=== PATIENT | male | born 1980 | race Caucasian/White ===

== ENCOUNTER 2024-03-19 14:29 | Day surgery (SDC) | payer OTHER ==
[2024-03-19] MEDS ORDERED: Decadron 4 MG INJ IV ONE (14:30)
[2024-03-19] MEDS ORDERED: Sodium Chloride 0.9(Preservative Free) 10 ML IJ ONE (14:30)
[2024-03-19] MEDS ORDERED: DIPRIVAN 200 MG/20 ML IV ONE ×2 (16:10→16:16)
[2024-03-19] MEDS ORDERED: MORPHINE SULFATE 2 MG INJ ONE (16:36)
[2024-03-19] MEDS ORDERED: Lactated Ringers 1,000 ML IV ONE (17:55)
--- NOTE | 2024-03-19 19:00 | XRAY ---
Indication: Left L4-S1 transforaminal HALLIE. Intraoperative fluoroscopy provided for 25 seconds. 4 digital spot image submitted for interpretation demonstrates posterior needle tips projecting over the expected left L4 and L5 nerve roots. Small amount of contrast injected for needle tip placement. Correlate with intraoperative findings/report.
--- NOTE | 2024-03-20 12:14 | XRAY ---
25 seconds of fluoroscopy was used in surgery for a left L4-S1 transforaminal HALLIE.
== END 2024-03-19 17:00 | disposition home or self-care (01) ==
LOC: SDC-PAIN 14:29
PROVIDERS: ATTEND Psychiatry & Neurology Pain Medicine
DX: M54.16 Radiculopathy, lumbar region (principal)
CPT/HCPCS: 64483; 64484; 72100; 77003; J1100; J2270; J2704; Q9966